=== PATIENT | female | born 2000 | race Caucasian/White ===

== ENCOUNTER → 2020-11-16 17:27 | Outpatient (CLI) | payer OTHER, SELFPAY ==
--- NOTE | 2020-11-16 17:32 | DI.MRI.S_ITS ---
PROCEDURE: MRFOOT LT WO CON INDICATIONS: Pain in left foot TECHNIQUE: Noncontrast sagittal T1 spin echo and T2 fast spin echo with fat saturation, long-axis T1 spin echo and T2 fast spin echo with fat saturation, short-axis T1 spin echo and T2 fast spin echo with fat saturation through the forefoot. COMPARISON: None. FINDINGS: Image quality: Excellent. No discrete fracture line seen however there is marrow edema involving the talar head. Scattered degenerative subchondral sclerosis and spurring. The sesamoid bones appear in expected positions, without internal edema. Mild 1st metatarsophalangeal joint degeneration. No intraosseous lesions. Soft tissues: There is dorsal subcutaneous edema involving the midfoot and forefoot. There is also infiltrative T1 isointense to muscle signal intensity seen along the plantar aspect of the 2nd metatarsal head. There is predominantly T2 hypointense appearance. This measures approximately 0.8 x 0.7 cm on short axis pulse sequences. No intermetatarsal bursitis is seen. The visualized flexor and extensor tendons appear grossly intact. No muscle atrophy. IMPRESSION: Prominent infiltration of the normal soft tissue fat signal intensity suggestive of mass at the plantar aspect of the 2nd metatarsal head. This raises the question of Anthony's neuroma which could be better assessed with dedicated contrast enhanced MRI. Prominent marrow edema involving the talar head, raising possibility of acute contusion. Please correlate clinically to point tenderness. Differential includes chronic reactive change to osteoarthritis among other possibilities. Nonspecific dorsal subcutaneous diffuse edema along the midfoot and forefoot. Dictated by: Jeffrey Lovett M.D. on 11/17/2020 at 9:28 Approved by: Jeffrey Lovett M.D. on 11/17/2020 at 10:11
== END ==
PROVIDERS: PCP Physician Assistant; Referring Provider Physician Assistant; Visit Provider Physician Assistant
DX: M79.672 Pain in left foot (principal)
CPT/HCPCS: 73718